=== PATIENT | female | born 1960 | race Caucasian/White ===

== ENCOUNTER → 2017-09-18 | Outpatient (CLI) | payer BC ==
[~2017-09-18] MED LIST: ALBUTEROL SULFATE 0.083% NEB 2.5 MG/3 ML AMPUL NEB ONE
--- NOTE | 2017-09-25 13:21 | Pulmonary Function Test ---
Pulmonary Function Test Date of Procedure:: 09/25/17 INDICATION:: Cough Referring Provider: Dr. 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 - Report Spirometry: FVC 2.46 L 85% postbronchodilator 2.64 L 91% FEV1 2.21 L 93% postbronchodilator 2.20 L 93% FEV1/FVC % 90 postbronchodilator 83 dictated 83 FEF 25-75% 3.54 138% postbronchodilator 2.62-102% Total lung capacity 3.73 79% Vital capacity 2.46 85% Inspiratory capacity 1.84 FRC N 2 1.90 L 80% ERV 0.58 RV 1.2 772% RV/TLC % 34 predicted 37 DLCO 15.3 69% DLCO/VA 4.58 118% Lung Volume: Total lung capacity 3.73 79% Vital capacity 2.46 85% Inspiratory capacity 1.84 FRC N 2 1.90 L 80% ERV 0.58 RV 1.2 772% RV/TLC % 34 predicted 37 Diffusion Capactity: DLCO 15.3 69% DLCO/VA 4.58 118% Impression: No evidence to support obstructive ventilatory defect.There is a borderline restrictive ventilatory defect. No hyperinflation or air trapping. Borderline decrease in diffusion capacity.
== END ==
LOC: RT 13:43
PROVIDERS: ATTEND Internal Medicine Pulmonary Disease
DX: J98.4 Other disorders of lung (principal); R05 Cough; R49.0 Dysphonia; R09.82 Postnasal drip; R32 Unspecified urinary incontinence; R07.9 Chest pain, unspecified
CPT/HCPCS: 94060; 94727; 94729; 94760